=== PATIENT | male | born 1990 | race American Indian/Alaskan Native ===

== ENCOUNTER 2021-06-12 05:20 | Emergency (ER) | payer SELFPAY ==
[2021-06-12 06:31] LABS: Basophils # (Auto) 0.1 K/mm3 (0.0-0.1); Basophils % (Auto) 0.4 % (0.0-1.8); Eosinophils % (Auto) 0.1 % (0.0-4.3); Hematocrit 40.9 % (35.5-45.6); Hemoglobin 13.1 gm/dl (11.8-15.2); Lymphocytes # (Auto) 1.3 K/mm3 (1.2-5.4); Lymphocytes % (Auto) 7.2 % (13.4-35.0); Mean Corpuscular HGB Conc 32 % (32-34); Mean Corpuscular Volume 84 fl (84-94); Monocytes # (Auto) 1.4 K/mm3 (0.0-0.8); Monocytes % (Auto) 7.2 % (0.0-7.3); Platelet Count 332 K/mm3 (140-440); Red Cell Distribution Width 15.4 % (13.2-15.2)
[2021-06-12 06:42] LABS: INR 1.01 (0.87-1.13)
[2021-06-12 06:43] LABS: Partial Thromboplastin Time 30.5 Sec. (24.2-36.6)
[2021-06-12 06:54] LABS: Alanine Aminotransferase 17 units/L (7-56); Albumin 4.7 g/dL (3.9-5); BUN/Creatinine Ratio 17; Blood Urea Nitrogen 19 mg/dL (9-20); Calcium 9.4 mg/dL (8.4-10.2); Hemolysis Index 5
[2021-06-12] MEDS ORDERED: fentaNYL 100 MCG/2 ML INJ IV SCH (07:00)
[2021-06-12] MEDS ORDERED: ONDANSETRON 4 MG/2 ML INJ IV SCH (07:00)
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
[2021-06-12 07:45] LABS: INR 1.07 (0.87-1.13)
[2021-06-12 07:46] LABS: Partial Thromboplastin Time 33.2 Sec. (24.2-36.6)
[2021-06-12] MEDS ORDERED: SODIUM CHLORIDE 0.9% 1000 ML 1,000 ML IV ONE ×2 (08:00→08:34)
--- NOTE | 2021-06-12 09:07 | Cat Scan Report ---
CT ABDOMEN AND PELVIS WITH CONTRAST INDICATION / CLINICAL INFORMATION: Epigastric / L.U.Q., Pancreatitis 100 ml omni 300 . TECHNIQUE: Axial CT images were obtained through the abdomen and pelvis after 100 cc of Omnipaque [address] scans at this location are performed using CT dose reduction for ALARA by means of automated exposure control. COMPARISON: None available. FINDINGS: LOWER CHEST: No significant abnormality. AORTA / ARTERIES: No significant abnormality. IVC / VEINS: No significant abnormality. LYMPH NODES: No significant adenopathy. COLON: No significant abnormality. APPENDIX: No significant abnormality. STOMACH / SMALL BOWEL: No significant abnormality. PERITONEUM: No free fluid. No free air. No fluid collection. LIVER: No significant abnormality. GALLBLADDER: No significant abnormality. BILE DUCTS: No significant abnormality. 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 SPLEEN: Patient status post splenectomy. There are several splenules within the left upper quadrant. ADRENALS: No significant abnormality. RIGHT KIDNEY / URETER: Following the inferior pole of the right kidney there is a partially exophytic 2.0 cm solid renal mass. LEFT KIDNEY / URETER: No significant abnormality. URINARY BLADDER: No significant abnormality. REPRODUCTIVE ORGANS: No significant abnormality. SKELETAL SYSTEM: Scattered degeneration. Incidentally noted vertebral fusion anomaly at L2-L3. ADDITIONAL FINDINGS: Metallic density is noted within the right psoas muscle. IMPRESSION: 1. No acute intra-abdominal or intrapelvic pathology. 2. There is a partially exophytic 2.0 cm solid renal mass along the inferior pole of the right kidney . Further workup with multi phase CT is recommended. 3. Additional findings as above. Signer Name: Bartolo Shah DO Signed: 06/12/2021 9:03 AM Workstation Name: [id number]
--- NOTE | 2021-06-12 10:50 | Electrocardiograph Report ---
[facility] Test Date: 2021-06-12 Test Time: 09:01:05 Pat Name: ANANYA BRUNNER Department: Room: Gender: M Supervisor [employer] Signals: : 1990 Requested By: PREETHI JOSEPH Order Number: [id number] Reading MD: Arnol Michele Measurements Intervals [place] Rate: 76 P: 82 [place]: 190 QRS: 80 QRSD: 95 T: 70 QT: 453 QTc: 510 Interpretive Statements Sinus arrhythmia ST elevation suggests acute pericarditis Prolonged QT interval No previous ECG available for comparison Electronically Signed On 06-12-2021 10:50:03 EDT by Arnol Michele
[2021-06-12] MEDS ORDERED: ONDANSETRON 4 MG/2 ML INJ ONE (12:21)
[2021-06-12] MEDS ORDERED: ONDANSETRON 4 MG/2 ML INJ IV ONE (12:22)
[2021-06-12] MEDS ORDERED: fentaNYL 100 MCG/2 ML INJ IV ONE (12:22)
[2021-06-12 13:18] VITALS: BP 116/52
== END 2021-06-12 13:22 | disposition home or self-care (01) ==
LOC: ED 05:20
DX: R10.11 Right upper quadrant pain (principal); R10.13 Epigastric pain; K21.9 Gastro-esophageal reflux disease without esophagitis; Z98.890 Other specified postprocedural states; F17.200 Nicotine dependence, unspecified, uncomplicated; Z79.899 Other long term (current) drug therapy
CPT/HCPCS: 36415; 74177; 80053; 82140; 83690; 83735; 84484; 85025; 85610; 85730; 86850; 86900; 86901; 93005; 96361; 96374; 96375; 96376; 99284; J2405; J3010; J7030; Q9967; 80320; G0480